=== PATIENT | male | born 1980 | race Hispanic/Latino ===

== ENCOUNTER 2023-04-03 15:48 | Emergency (ER) | payer SELFPAY ==
[2023-04-03 16:31] LABS: #Eosinphils 0.2 thou/uL (0.0-0.7); #Monocytes 0.6 thou/uL (0.11-0.59); #Neutrophils 4.8 thou/uL (1.40-6.50); %Basophils 0.5 % (0.0-1.0); %Eosinophils 2.2 % (0.0-10.0); %Lymphocytes 31.2 % (21.0-51.0); %Monocytes 7.2 % (0.0-10.0); %Neutrophils 58.3 % (42.0-75.0); Hematocrit 41.8 % (42.0-52.0); Hemoglobin 14.4 g/dL (14.0-18.0); Mean Corpuscular HGB CONC 34.4 g/dL (32.0-36.0); Mean Corpuscular Volume 87.1 fl (78.0-98.0); Mean Platelet Volume 11.8 fL (7.4-10.4); Platelet Count 232 10x3/uL (130-400); RBC Distribution Width 11.5 % (11.5-14.5); White Blood Cell (WBC) Count 8.2 10x3/uL (4.8-10.8)
[2023-04-03] MEDS ORDERED: Ondansetron PF 4 MG/2 ML Vial ONE (16:36)
[2023-04-03 16:59] LABS: ALT (SGPT) 21 U/L (8-55); AST (SGOT) 22 U/L (5-34); Albumin 5.1 g/dL (3.5-5.0); Alkaline Phosphatase 64 U/L (40-110); Anion Gap 14 mmol/L (10-20); BUN (Urea Nitrogen) 11 mg/dL (8.9-20.6); Bilirubin, Total 0.4 mg/dL (0.2-1.2); Calc. Creatinine Clearance 0 mL/min (70-130); Calcium 9.9 mg/dL (7.8-10.44); Carbon Dioxide 24 mmol/L (22-29); Chloride 105 mmol/L (98-107); Estimated GFR 115; Globulin 2.8 g/dL (2.4-3.5); Glucose 96 mg/dL (70-105); Potassium 3.8 mmol/L (3.5-5.1); Protein, Total 7.9 g/dL (6.0-8.3); Sodium 139 mmol/L (136-145)
[2023-04-03] MEDS ORDERED: Meclizine HCl 25 MG TAB ONE (18:15)
[2023-04-03 19:23] LABS: Prothrombin Time 13.2 sec (12.0-14.7)
[2023-04-03 19:37] LABS: Acetaminophen Less than 10 mcg/mL (10.0-30.0); Alcohol Less than 10.0 mg/dL (Less than 10); Lipase 40 U/L (8-78); Salicylate Less than 8.0 mg/dL (15.0-30.0)
[2023-04-03 19:40] LABS: Troponin I Less than 0.010 ng/mL (< 0.028)
== END 2023-04-03 19:37 | disposition home or self-care (01) ==
LOC: ERS 15:48
DX: T52.2X1A Toxic effect of homologues of benzene, accidental (unintentional), initial encounter (principal); R42 Dizziness and giddiness
CPT/HCPCS: 70450; 71045; 80053; 80307; 83690; 84484; 85025; 85610; 85730; 93005; 94760; 96374; J2405